=== PATIENT | male | born 1990 | race Caucasian/White ===

== ENCOUNTER 2016-06-06 01:18 | Emergency (ER) | payer SELFPAY ==
[~2016-06-06] VITALS: Ht 167.6 cm; Wt 72.1 kg
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
[2016-06-06 02:52] VITALS: BP 120/74
== END 2016-06-06 02:54 ==
LOC: ERH 01:18
DX: S51.812A Laceration without foreign body of left forearm, initial encounter (principal); T14.8 Other injury of unspecified body region; Y00.XXXA Assault by blunt object, initial encounter; V89.2XXA Person injured in unspecified motor-vehicle accident, traffic, initial encounter